=== PATIENT | female | born 1995 | race Caucasian/White ===

== ENCOUNTER 2017-07-11 11:46 | Inpatient (IN) | payer OTHER ==
[2017-07-11] MEDS ORDERED: BUTORPHANOL 2 MG INJ IV (12:30)
[2017-07-11] MEDS ORDERED: IBUPROFEN 600 MG TAB PO (12:30)
[2017-07-11] MEDS ORDERED: CARBOPROST 250 MCG INJ IM (12:30)
[2017-07-11] MEDS ORDERED: METHYLERGONOVINE 0.2 MG INJ IM (12:30)
[2017-07-11] MEDS ORDERED: LIDOCAINE 1% (MPF) 30 ML INJ INJ (12:30)
[2017-07-11] MEDS ORDERED: OXYTOCIN 30 UNITS/LR 500 ML IV (12:30)
[2017-07-11] MEDS ORDERED: AMPICILLIN 2 GM/NS (PMX) 100 ML IV (12:30)
[2017-07-11] MEDS ORDERED: OXYCODONE/ACETAMINOPHEN (5/325) TAB PO (12:30)
[2017-07-11] MEDS ORDERED: MISOPROSTOL 200 MCG TAB PR (12:30)
[2017-07-11 14:09] LABS: ADD MAN DIFF? NO
[2017-07-11 14:10] LABS: WHITE BLOOD COUNT 10.9 10^3/ul (4.8-10.8)
[2017-07-11 14:10] LABS: ABNORMAL IP MESSAGE 1; BASOPHILS % 0.2 % (0.0-2.0); EOSINOPHILS % 0.2 % (0.0-7.0); HEMATOCRIT 39.8 % (37.0-47.0); LYMPHOCYTES # 1.7 10^3/ul (0.8-2.9); LYMPHOCYTES % 15.2 % (18.0-55.0); MEAN CORPUSCULAR HEMOGLOBIN 28.1 pg (29.0-33.0); MEAN CORPUSCULAR HGB CONC 32.7 g/dl (32.0-37.0); MEAN PLATELET VOLUME 14.2 fl (7.4-10.4); MONOCYTE # 0.6 10^3/ul (0.3-0.9); MONOCYTES % 5.1 % (0.0-13.0); NEUTROPHIL # 8.6 10^3/ul (1.6-7.5); NEUTROPHILS % 78.7 % (30.0-74.0); PLATELET COUNT 111 10^3/UL (140-415); RED BLOOD COUNT 4.63 10^6/ul (4.20-5.40); RED CELL DISTRIBUTION WIDTH 14.7 % (11.5-14.5)
[2017-07-11 14:17] LABS: POSITIVE DIFF @See below
[2017-07-11 14:45] LABS: INR 0.92; PROTIME 12.4 Sec (11.9-14.9)
[2017-07-11 14:46] LABS: PARTIAL THROMBOPLASTIN TIME 27.1 Sec (25.0-35.0)
[2017-07-11] MEDS ORDERED: AMPICILLIN 1 GM/NS (PMX) 50 ML IV (16:30)
[2017-07-11] MEDS: LACTATED RINGER'S 1,000 ML IV ×2 (17:45→18:46)
[2017-07-11] MEDS ORDERED: FENTAnyl 2MCG/ML-ROPIV 0.2% 100 ML ×2 (18:23→18:25)
[2017-07-11] MEDS ORDERED: HYDROmorphONE 0.5 MG/0.5 ML SYG IV ×2 (19:00)
[2017-07-11] MEDS ORDERED: KETOROLAC 30 MG INJ IV (19:00)
[2017-07-11] MEDS ORDERED: NALOXONE (0.4 MG/ML) INJ IV (19:00)
[2017-07-11] MEDS ORDERED: DIPHENHYDRAMINE 50 MG INJ IV (19:00)
[2017-07-11] MEDS ORDERED: ONDANSETRON 4 MG INJ IV (19:00)
[2017-07-11] MEDS: FENTAnyl 2MCG/ML-ROPIV 0.2% 100 ML BAG EPI (21:03)
[2017-07-11] MEDS: ACETAMINOPHEN 325 MG TAB PO (21:14)
[2017-07-11 21:30] LABS: RAPID PLASMA REAGIN NONREACTIVE (NR)
[2017-07-11] MEDS: OXYTOCIN 30 UNITS/LR 500 ML IV (23:19)
[2017-07-12] MEDS: OXYTOCIN 30 UNITS/LR 500 ML IV ×3 (01:25→07:30)
[2017-07-12] MEDS: LACTATED RINGER'S 1,000 ML IV* ×3 (01:46→17:46)
[2017-07-12] MEDS ORDERED: METHYLERGONOVINE 0.2 MG INJ IM (02:00)
[2017-07-12] MEDS ORDERED: MISOPROSTOL 200 MCG TAB PR (02:00)
[2017-07-12] MEDS ORDERED: LANOLIN 7 GM TUBE TOP (02:00)
[2017-07-12] MEDS ORDERED: OXYTOCIN 30 UNITS/LR 500 ML IV (02:00)
[2017-07-12] MEDS ORDERED: CARBOPROST 250 MCG INJ IM (02:00)
[2017-07-12] MEDS: BENZOCAINE 20% 56 ML SPRAY TOP (05:42)
[2017-07-12] MEDS: IBUPROFEN 600 MG TAB PO ×4 (05:42→23:34)
[2017-07-12] MEDS: HYDROCODONE/APAP (5/325) TAB PO (20:31)
[2017-07-13] MEDS: LACTATED RINGER'S 1,000 ML IV* ×2 (01:46→09:46)
[2017-07-13] MEDS: IBUPROFEN 600 MG TAB PO ×4 (05:34→23:47)
[2017-07-13 08:15] LABS: ADD MAN DIFF? NO
[2017-07-13 08:28] LABS: ABNORMAL IP MESSAGE 1; BASOPHILS % 0.2 % (0.0-2.0); EOSINOPHILS # 0.1 10^3/ul (0.0-0.5); EOSINOPHILS % 0.9 % (0.0-7.0); HEMATOCRIT 32.9 % (37.0-47.0); HEMOGLOBIN 10.6 g/dl (12.0-16.0); LYMPHOCYTES % 19.7 % (18.0-55.0); MEAN CORPUSCULAR HEMOGLOBIN 27.7 pg (29.0-33.0); MEAN CORPUSCULAR HGB CONC 32.2 g/dl (32.0-37.0); MEAN CORPUSCULAR VOLUME 86.1 fl (72.0-104.0); MEAN PLATELET VOLUME 14.1 fl (7.4-10.4); MONOCYTE # 0.7 10^3/ul (0.3-0.9); NEUTROPHIL # 7.1 10^3/ul (1.6-7.5); NEUTROPHILS % 71.1 % (30.0-74.0); PLATELET COUNT 99 10^3/UL (140-415); RED BLOOD COUNT 3.82 10^6/ul (4.20-5.40); RED CELL DISTRIBUTION WIDTH 15.2 % (11.5-14.5)
[2017-07-13 08:39] LABS: POSITIVE DIFF @See below
[2017-07-13] MEDS: HYDROCODONE/APAP (5/325) TAB PO (20:05)
[2017-07-14] MEDS: IBUPROFEN 600 MG TAB PO ×2 (05:39→12:10)
[2017-07-14] MEDS: DIPHTH/TET/ACEL PERTUSS (ADULT) 0.5 ML VIAL IM* (10:31)
[2017-07-14] MEDS: HYDROCODONE/APAP (5/325) TAB PO (10:35)
== END 2017-07-14 15:10 | disposition home or self-care (01) | DRG 775 ==
LOC: OBT 11:46 → PP1 07-12 04:11 → L-D 11:48 → OBT 12:10 → L-D 12:10
PROVIDERS: Obstetrics & Gynecology
PROC: 10E0XZZ Delivery of Products of Conception, External Approach (ICD-10-PCS; principal; 2017-07-12)
PROC: 0HQ9XZZ Repair Perineum Skin, External Approach (ICD-10-PCS; 2017-07-12)
PROC: 3E033VJ Introduction of Other Hormone into Peripheral Vein, Percutaneous Approach (ICD-10-PCS; 2017-07-12)
DX: O70.0 First degree perineal laceration during delivery (principal); Z3A.38 38 weeks gestation of pregnancy; Z37.0 Single live birth
CPT/HCPCS: 62319; 76815; 85025; 85610; 85730; 86592; 86900; 86901; 90715